=== PATIENT | female | born 1960 | race Caucasian/White ===

== ENCOUNTER 2019-12-08 15:50 | Emergency (ER) | payer OTHER ==
[~2019-12-08] VITALS: Ht 162.6 cm; Wt 80.0 kg
[~2019-12-08 15:50] MED LIST: AMOXICILLIN500 MG PO; ASPIRIN LOW DOS81 MG PO; BL ADULT ASA81 MG PO; CHERATUSSIN PO; Levaquin PO; MUCINEX600 MG PO; ZOFRAN ODT4 MG PO
[2019-12-08 17:25] LABS: HEMATOCRIT 41.2 % (37.0-47.0); HEMOGLOBIN 13.4 g/dl (12.0-16.0); MEAN CELL VOLUME 94.7 fL CALC (80.0-100.0); MEAN CORPUSCULAR HGB 30.8 pG CALC (26.0-32.0); MEAN CORPUSCULAR HGB CONC 32.5 g/dL CAL (32.0-36.0); NEUT# 1.23 thou/uL (2.00-7.15); RED BLOOD COUNT 4.35 mill/uL (4.20-5.60); RED CELL DISTRI WIDTH 13.6 % (11.5-15.5)
[2019-12-08 17:38] LABS: ALBUMIN 4.2 g/dL (3.2-5.0); ALKALINE PHOSPHATASE 102 u/l (38-126); ANION GAP 12 (6-22 (CALC)); BUN 11 mg/dL (7-17); BUN/CREATININE RATIO 16 (12-20 (CALC)); CARBON DIOXIDE 24 mmol/l (22-30); CHLORIDE 107 mmol/l (95-108); CREATININE 0.7 mg/dL (0.5-1.0); GFR > 60 ML/MIN (>=60 (CALC)); GFR FOR AFR.AMER. > 60 ML/MIN (>=60 (CALC)); POTASSIUM 3.6 mmol/l (3.5-5.1); SODIUM 139 mmol/l (137-146); TOTAL PROTEIN 6.9 g/dL (6.3-8.2)
[2019-12-08 17:39] LABS: BILIRUBIN, TOTAL 0.2 mg/dL (0.0-1.4); SGOT/AST 34 u/l (14-36)
[2019-12-08 17:50] LABS: MYOGLOBIN 28 ng/mL (0 - 62)
[2019-12-08 17:55] LABS: URINE BILIRUBIN - DIPSTICK NEGATIVE (NEGATIVE); URINE BLOOD DIPSTICK NEGATIVE (NEGATIVE); URINE COLOR YELLOW; URINE GLUCOSE - DIPSTICK NEGATIVE (NEGATIVE); URINE KETONE NEGATIVE (NEGATIVE); URINE LEUK ESTERASE NEGATIVE (NEGATIVE); URINE NITRITE - DIPSTICK NEGATIVE (Negative); URINE PROTEIN - DIPSTICK NEGATIVE (NEG-TRACE); URINE UROBILINOGEN - DIPSTICK 0.2 E.U./dL (0.2)
[2019-12-08] MEDS ORDERED: AMOXICILLIN500 MG PO (18:02)
[2019-12-08 18:17] VITALS: BP 132/73
--- NOTE | 2019-12-10 09:05 | NUR ---
Patient notified of positive Covid results. Patient denies SOB. Patient c/o fatigue. Advised patient to quarantine unitl contacted by the [facility] [place]. Advised patient to return to ED with any difficulty breathing. Patient verbalized understanding. Verbal authorization received from patient for leonila Crowder to [employer]eps[employer] pickler a copy of her results.
== END 2019-12-08 18:33 | disposition home or self-care (01) | DRG 179 ==
LOC: ED 15:50
PROVIDERS: Emergency Medicine
DX: U07.1 COVID-19 (principal)

== ENCOUNTER 2020-08-20 11:47 | Emergency (ER) | payer SELFPAY ==
[~2020-08-20] VITALS: Ht 162.6 cm; Wt 82.2 kg
[2020-08-20] MEDS ORDERED: ACETAMIN500 M2 PO (12:31)
[2020-08-20 12:35] LABS: GFR > 60 ML/MIN (>=60 (CALC)); GFR FOR AFR.AMER. > 60 ML/MIN (>=60 (CALC))
[2020-08-20 12:41] LABS: IMMATURE GRANULOCYTES 0.2 % (0.0-5.0); MEAN CELL VOLUME 94.5 fL CALC (80.0-100.0); MEAN CORPUSCULAR HGB 30.8 pG CALC (26.0-32.0); MEAN CORPUSCULAR HGB CONC 32.6 g/dL CAL (32.0-36.0); NEUT# 5.06 thou/uL (2.00-7.15); RED BLOOD COUNT 4.87 mill/uL (4.20-5.60); RED CELL DISTRI WIDTH 13.5 % (11.5-15.5)
[2020-08-20 12:59] LABS: ALBUMIN 4.7 g/dL (3.2-5.0); ALKALINE PHOSPHATASE 93 u/l (38-126); ANION GAP 13 (6-22 (CALC)); BILIRUBIN, TOTAL 0.6 mg/dL (0.0-1.4); BUN 10 mg/dL (7-17); BUN/CREATININE RATIO 12 (12-20 (CALC)); CARBON DIOXIDE 28 mmol/l (22-30); CHLORIDE 102 mmol/l (95-108); CREATININE 0.8 mg/dL (0.5-1.0); GFR > 60 ML/MIN (>=60 (CALC)); GFR FOR AFR.AMER. > 60 ML/MIN (>=60 (CALC)); LIPASE 90 u/l (23-300); POTASSIUM 4.3 mmol/l (3.5-5.1); SGOT/AST 26 u/l (14-36); SODIUM 139 mmol/l (137-146); TOTAL PROTEIN 7.6 g/dL (6.3-8.2)
[2020-08-20 14:05] LABS: URINE BILIRUBIN - DIPSTICK NEGATIVE (NEGATIVE); URINE BLOOD DIPSTICK NEGATIVE (NEGATIVE); URINE COLOR YELLOW; URINE GLUCOSE - DIPSTICK NEGATIVE (NEGATIVE); URINE KETONE NEGATIVE (NEGATIVE); URINE LEUK ESTERASE NEGATIVE (NEGATIVE); URINE PH 7.5 (4.5-8.0); URINE PROTEIN - DIPSTICK NEGATIVE (NEG-TRACE); URINE UROBILINOGEN - DIPSTICK 0.2 E.U./dL (0.2)
[2020-08-20 14:08] LABS: URINE NITRITE - DIPSTICK NEGATIVE (Negative)
[2020-08-20 23:00] VITALS: BP 153/80
--- NOTE | 2020-08-23 12:19 | NUR ---
PER PHYSICIAN AND PATIENT REQUEST OF MEDICATION FOR NAUSEA FOLLOWING SURGERY. RX. ZOFRAN 4MG SG. 1 TAB BY MOUTH EVERY SIX HOURS NEEDED FOR NAUSEA #20 CALLED INTO [facility]. PATIENT NOTIFIED TO [facility] WHEN AVAILABLE, PATIENT HAD NO OTHER CONCERNS AT TIME OF CALL.
== END 2020-08-20 23:00 | disposition short-term general hospital (02) | DRG 395 ==
LOC: ED 11:47
PROVIDERS: Family Medicine
DX: K40.91 Unilateral inguinal hernia, without obstruction or gangrene, recurrent (principal); F17.210 Nicotine dependence, cigarettes, uncomplicated; Z20.822 Contact with and (suspected) exposure to COVID-19
CPT/HCPCS: Q9967

== ENCOUNTER 2024-08-04 18:40 | Emergency (ER) | payer MEDICARE ==
[~2024-08-04] VITALS: Ht 162.6 cm; Wt 88.0 kg
[2024-08-04] VITALS (7 sets, daily range): BP systolic 158–192; BP diastolic 93–113
[~2024-08-04 18:40] MED LIST changes: +ACETAMIN500 M2 PO
[2024-08-04] MEDS ORDERED: ASPIRIN 81 MG/TAB PO ONE (18:45)
[2024-08-04] MEDS ORDERED: NITROGLYCERIN IN D5W 250 ML IV ONE (18:55)
[2024-08-04] MEDS ORDERED: SODIUM CHLORIDE 0.9% 250 ML IV PRN ×2 (18:55→19:00)
[2024-08-04] MEDS ORDERED: Heparin SODIUM (Porcine) 500 ML IV ONE (19:00)
[2024-08-04] MEDS ORDERED: Heparin SODIUM (Porcine) 5,000 UNITS/ML SDV IV ONE (19:00)
[2024-08-04 19:05] LABS: BASO% 0.3 % (0-3); EOS% 5.4 % (0-8); HEMATOCRIT 44.7 % (37.0-47.0); HEMOGLOBIN 14.8 g/dl (12.0-16.0); IMMATURE GRANULOCYTES 0.2 % (0.0-5.0); LYMPH% 37.4 % (15-41); MEAN CELL VOLUME 94.7 fL CALC (80.0-100.0); MEAN CORPUSCULAR HGB 31.4 pG CALC (26.0-32.0); MEAN CORPUSCULAR HGB CONC 33.1 g/dL CAL (32.0-36.0); MONO% 6.8 % (2-13); NEUT# 7.21 thou/uL (2.00-7.15); NEUT% 49.9 % (42-76); RED BLOOD COUNT 4.72 mill/uL (4.20-5.60); RED CELL DISTRI WIDTH 13.5 % (11.5-15.5)
[2024-08-04 19:14] LABS: ALBUMIN 4.5 g/dL (3.2-5.0); BILIRUBIN, TOTAL 0.4 mg/dL (0.02-1.3); CREATININE 0.8 mg/dL (0.5-1.0); POTASSIUM 3.6 mmol/l (3.5-5.1); TOTAL PROTEIN 7.6 g/dL (6.3-8.2)
== END 2024-08-04 20:00 | disposition short-term general hospital (02) ==
LOC: ED 18:40
PROVIDERS: Family Medicine
DX: R07.9 Chest pain, unspecified (principal); R94.31 Abnormal electrocardiogram [ECG] [EKG]; I10 Essential (primary) hypertension; T46.5X6A Underdosing of other antihypertensive drugs, initial encounter; Z91.128 Patient's intentional underdosing of medication regimen for other reason; F17.210 Nicotine dependence, cigarettes, uncomplicated
CPT/HCPCS: J1644; J2305